=== PATIENT | female | born 1985 | race Caucasian/White ===

== ENCOUNTER → 2020-12-20 09:12 | Outpatient (BNVA) | payer OTHER, SELFPAY | PROVIDERS: PCP Nurse Practitioner Family; Visit Provider Internal Medicine Gastroenterology ==

== ENCOUNTER 2021-02-08 11:24 | Outpatient (REF) | payer OTHER, SELFPAY ==
[2021-02-08 12:02] LABS: MANUAL DIFF FLAG NO
[2021-02-08 12:09] LABS: Basophils Absolute Auto 0.1 X10*3/uL (0.0-0.2); Basophils Percent Auto 1.3 % (0-2); Eosinophils Absolute Auto 0.1 X10*3/uL (0.0-0.4); Eosinophils Percent Auto 2.4 % (0-4); Hematocrit 40.8 % (37-47); Hemoglobin 13.3 g/dl (12.0-16.0); Imm Gran Abs Auto 0.01 X10*3/uL (0.00-0.03); Imm Gran Pct Auto 0.2 % (0.0-0.4); Lymphocytes Absolute Auto 1.5 X10*3/uL (1.2-4.9); Lymphocytes Percent Auto 32.6 % (20-40); Mean Corpuscular HGB Conc 32.6 g/dl (31.0-35.0); Mean Corpuscular Hemoglobin 30.2 pg (27.0-33.0); Mean Corpuscular Volume 92.5 fL (80-98); Mean Platelet Volume 10.6 fL (9.4-12.3); Monocytes Absolute Auto 0.4 X10*3/uL (0.1-1.2); Monocytes Percent Auto 8.1 % (2-11); Neutrophils Absolute Auto 2.5 X10*3/uL (2.0-8.3); Neutrophils Percent Auto 55.4 % (45-73); Platelet Count 280 X10*3/uL (160-400); Red Blood Count 4.41 X10*6/uL (4.20-5.50); Red Cell Distribution Width 12.9 % (11.0-16.0); White Blood Count 4.5 X10*3/uL (4.8-10.8)
[2021-02-08 12:36] LABS: Alanine Aminotransferase 47 U/L (0-31); Albumin Level 4.6 g/dL (3.5-5.0); Alkaline Phosphatase 72 U/L (39-117); Anion Gap 12 (12-20); Aspartate Amino Transferase 40 U/L (5-31); Bilirubin Total 0.8 mg/dL (0.0-1.0); Blood Urea Nitrogen 9 mg/dL (9-16); Calcium 9.8 mg/dL (8.4-10.2); Carbon Dioxide 27 mmol/L (22-29); Chloride 105 mmol/L (96-108); Estimated Glomerular Filt Rate > 60; Glucose Random 87 mg/dL (60-115); Potassium 4.5 mmol/L (3.3-5.1); Sodium 139 mmol/L (135-145); Total Protein 7.4 g/dL (6.5-8.0)
[2021-02-08 12:52] LABS: Erythrocyte Sedimentation Rate 2 MM/HR (0-20)
[2021-02-08 12:56] LABS: Vitamin D 25-OH Total 31.3 ng/mL (>30)
[2021-02-10 17:05] LABS: Folate 12.1 ng/mL (> or = 4.0); Vitamin B12 438 pg/mL (200-900)
[2021-02-11 01:07] LABS: Vitamin C 1.1 mg/dL (0.3-2.7)
[2021-02-12 10:58] LABS: Zinc 64 mcg/dL (60-130)
[2021-02-13 18:53] LABS: Vitamin A 33 mcg/dL (38-98)
[2021-02-14 16:16] LABS: Nicotinamide <20 ng/mL; Vit B3 - Nicotinic Acid <20 ng/mL
[2021-02-16 10:52] LABS: Vitamin B5 (Pantothenic Acid) <40 ng/mL (<275)
== END 2021-02-08 11:25 | disposition home or self-care (01) ==
LOC: HO.LAB 11:24
PROVIDERS: PCP Nurse Practitioner Family; Visit Provider Internal Medicine Gastroenterology
DX: E46 Unspecified protein-calorie malnutrition (principal)
CPT/HCPCS: 36415; 80053; 82180; 82306; 82607; 82746; 84207; 84590; 84591; 84630; 85025; 85652

== ENCOUNTER 2021-03-02 10:43 | Outpatient (REF) | payer OTHER, SELFPAY ==
[2021-03-02 11:52] LABS: Alanine Aminotransferase 50 U/L (0-31); Albumin Level 4.5 g/dL (3.5-5.0); Alkaline Phosphatase 68 U/L (39-117); Anion Gap 11 (12-20); Aspartate Amino Transferase 40 U/L (5-31); Bilirubin Total 0.7 mg/dL (0.0-1.0); Blood Urea Nitrogen 16 mg/dL (9-16); C Reactive Protein 0.06 mg/dL (< or = 0.50); Calcium 9.3 mg/dL (8.4-10.2); Carbon Dioxide 30 mmol/L (22-29); Chloride 104 mmol/L (96-108); Estimated Glomerular Filt Rate > 60; Glucose Random 104 mg/dL (60-115); Potassium 4.1 mmol/L (3.3-5.1); Rheumatoid Factor < 15.0 IU/mL (<15.0); Sodium 141 mmol/L (135-145); Total Protein 7.2 g/dL (6.5-8.0)
[2021-03-02 13:52] LABS: Erythrocyte Sedimentation Rate 3 MM/HR (0-20)
[2021-03-03 11:52] LABS: Immunoglobulin G 973 mg/dL (600-1640)
[2021-03-03 13:51] LABS: Anti Nuclear Antibody Screen NEGATIVE (NEGATIVE)
[2021-03-04 03:56] LABS: Cyclic Citrullinated Peptide <16 UNITS
[2021-03-08 05:22] LABS: Aldolase 5.3 U/L (<=8.1)
== END 2021-03-02 10:44 | disposition home or self-care (01) ==
LOC: HO.LAB 10:43
PROVIDERS: PCP Nurse Practitioner Family; Visit Provider Internal Medicine Gastroenterology
DX: K31.84 Gastroparesis (principal); E46 Unspecified protein-calorie malnutrition; K52.839 Microscopic colitis, unspecified; K63.89 Other specified diseases of intestine
CPT/HCPCS: 36415; 80053; 82085; 82550; 82784; 85652; 86038; 86039; 86140; 86200; 86431

== ENCOUNTER 2021-03-28 09:15 | Outpatient (REF) | payer OTHER, SELFPAY ==
--- NOTE | ~2021-03-28 | US_ITS ---
EXAMINATION: US ABDOMEN COMPLETE CLINICAL INFORMATION: Abnormal LFTs. COMPARISON: None TECHNIQUE: Real-time imaging of the abdominal viscera. FINDINGS: PANCREAS: Normal. ABDOMINAL AORTA: The proximal, mid, and distal segments are normal in caliber. INFERIOR VENA CAVA: Visualized portions are normal. LIVER: The liver is normal in size. The liver contour is normal. The liver echotexture is normal. No focal hepatic lesion. There is no intrahepatic biliary duct dilatation seen. There is echogenic material and linear septations seen in the extrahepatic main portal vein. This could be better evaluated with a dedicated abdominal Doppler exam if clinically indicated. GALLBLADDER: Normal. The gallbladder is physiologically distended without evidence of stones, sludge, polyps, wall thickening or pericholecystic fluid. COMMON BILE DUCT: Normal in caliber measuring 0.40 cm in diameter. RIGHT KIDNEY: Normal. No hydronephrosis. No renal calculi or focal parenchymal lesions. The kidney measures 10.3 cm in maximum dimension. LEFT KIDNEY: Normal. No hydronephrosis. No renal calculi or focal parenchymal lesions. The kidney measures 9.3 cm in maximum dimension. SPLEEN: Normal. The spleen measures 8.9 cm in maximum dimension. FREE FLUID: None. US/US abdomen complete IMPRESSION: Echogenic material questionable for nonocclusive thrombus and septation in the extrahepatic main portal vein. This could be better evaluated with a dedicated abdominal Doppler exam if clinically indicated.
== END 2021-03-28 09:16 | disposition home or self-care (01) ==
LOC: HO.US 09:15
PROVIDERS: Visit Provider Internal Medicine Gastroenterology
DX: R94.5 Abnormal results of liver function studies (principal)
CPT/HCPCS: 76700

== ENCOUNTER 2021-03-31 16:17 | Outpatient (REF) | payer OTHER, SELFPAY ==
--- NOTE | ~2021-03-31 | MR_ITS ---
EXAMINATION: MR ABDOMEN WITHOUT AND WITH CONTRAST CLINICAL INFORMATION: Question of portal vein thrombosis. COMPARISON: Abdominal ultrasound performed earlier today. TECHNIQUE: MR abdomen was performed without and with use of 6.5 mL intravenous Gadavist gadolinium contrast. Postcontrast images are performed in multiphase dynamic sequences. Imaging was performed in 3 planes. FINDINGS: LUNG BASES: The visualized lung bases are unremarkable. LIVER, GALLBLADDER, AND BILIARY TREE: Unremarkable. PANCREAS: Unremarkable. SPLEEN: Normal. ADRENAL GLANDS: Normal. KIDNEYS AND URETERS: The kidneys are normal in size, shape, and enhance symmetrically. No hydronephrosis. No perinephric stranding. GASTROINTESTINAL TRACT: No bowel obstruction. No ascites or fluid collection. ABDOMINAL WALL: No significant hernia is appreciated. LYMPH NODES: No lymphadenopathy. VASCULAR: The portal veins appear patent without definitive thrombus. Areas of low signal on postcontrast images likely represent flow artifact. Normal opacification of the intrahepatic portal veins is seen. OSSEOUS STRUCTURES: Marrow signal normal. MR/MR abdomen wo/w con IMPRESSION: No definitive evidence for portal vein thrombosis. The portal veins appear patent. As previously suggested, a dedicated abdominal Doppler ultrasound would be of value to confirm patency as well as assess flow dynamics.
== END 2021-03-31 16:18 | disposition home or self-care (01) ==
LOC: HO.MRI 16:17
PROVIDERS: Visit Provider Internal Medicine Gastroenterology
DX: I81 Portal vein thrombosis (principal)
CPT/HCPCS: 74183; A9585

== ENCOUNTER 2023-02-15 10:26 | Outpatient (REF) | payer OTHER, SELFPAY ==
[2023-02-15 11:47] LABS: MANUAL DIFF FLAG NO
[2023-02-15 11:56] LABS: Basophils Absolute Auto 0.1 X10*3/uL (0.0-0.2); Basophils Percent Auto 0.8 % (0-2); Eosinophils Absolute Auto 0.1 X10*3/uL (0.0-0.4); Eosinophils Percent Auto 1.8 % (0-4); Hematocrit 43.8 % (37.0-47.0); Hemoglobin 14.2 g/dl (12.0-16.0); Imm Gran Abs Auto 0.02 X10*3/uL (0.00-0.03); Imm Gran Pct Auto 0.3 % (0.0-0.4); Lymphocytes Absolute Auto 1.7 X10*3/uL (1.2-4.9); Lymphocytes Percent Auto 28.2 % (20-40); Mean Corpuscular HGB Conc 32.4 g/dl (31.0-35.0); Mean Corpuscular Hemoglobin 28.9 pg (27.0-33.0); Mean Platelet Volume 10.3 fL (9.4-12.3); Monocytes Absolute Auto 0.5 X10*3/uL (0.1-1.2); Monocytes Percent Auto 8.2 % (2-11); Neutrophils Absolute Auto 3.7 x10*3/uL (2.0-8.3); Neutrophils Percent Auto 60.7 % (45-73); Platelet Count 327 X10*3/uL (160-400); Red Blood Count 4.92 X10*6/uL (4.20-5.50); Red Cell Distribution Width 13.3 % (11.0-16.0); White Blood Count 6.1 X10*3/uL (4.8-10.8)
[2023-02-15 13:13] LABS: Alanine Aminotransferase 23 U/L (0-31); Albumin Level 4.6 g/dL (3.5-5.0); Alkaline Phosphatase 80 U/L (39-117); Anion Gap 13 (12-20); Aspartate Amino Transferase 21 U/L (5-31); Bilirubin Total 0.6 mg/dL (0.0-1.0); Blood Urea Nitrogen 14 mg/dL (9-16); C Reactive Protein < 0.10 mg/dL (< or = 0.50); Calcium 9.6 mg/dL (8.4-10.2); Carbon Dioxide 25 mmol/L (22-29); Chloride 107 mmol/L (96-108); Estimated Glomerular Filt Rate > 60; Glucose Random 91 mg/dL (60-115); Potassium 4.8 mmol/L (3.3-5.1); Sodium 140 mmol/L (135-145); Total Protein 7.5 g/dL (6.5-8.0)
[2023-02-15 13:48] LABS: Ferritin 28 ng/mL (10-122); Folate 12.2 ng/mL (> or = 4.0); Vitamin D 25-OH Total 12.5 ng/mL (>30)
[2023-02-15 13:59] LABS: Vitamin B12 597 pg/mL (200-900)
[2023-02-19 13:39] LABS: Zinc 59 mcg/dL (60-130)
[2023-02-20 14:39] LABS: Vitamin B6 7.9 ng/mL (2.1-21.7)
[2023-02-21 06:04] LABS: Alpha-Tocopherol 11.8 mg/L (5.7-19.9); Beta-Gamma Tocopherol <1.0 mg/L (<=4.3); Vitamin A 46 mcg/dL (38-98)
[2023-02-21 20:59] LABS: Vitamin B5 (Pantothenic Acid) <40 ng/mL (<275)
[2023-02-22 16:59] LABS: Vitamin B1 13 nmol/L (8-30)
[2023-02-22 17:18] LABS: Nicotinamide <20 ng/mL; Vit B3 - Nicotinic Acid <20 ng/mL; Vitamin K1 >2500 pg/mL (130-1500)
== END 2023-02-15 10:27 | disposition home or self-care (01) ==
LOC: HO.LAB 10:26
PROVIDERS: PCP Nurse Practitioner Family; Visit Provider Internal Medicine Gastroenterology
DX: K75.81 Nonalcoholic steatohepatitis (NASH) (principal); K63.89 Other specified diseases of intestine; E46 Unspecified protein-calorie malnutrition; R94.5 Abnormal results of liver function studies
CPT/HCPCS: 36415; 80053; 82180; 82306; 82607; 82728; 82746; 84207; 84425; 84446; 84590; 84591; 84597; 84630; 85025; 86140

== ENCOUNTER 2023-07-12 10:16 | Outpatient (AMB) | payer OTHER, SELFPAY ==
--- NOTE | 2023-07-12 10:29 | MHC.OFFVIS ---
Intake Vital Signs 07/12/23 10:31 Height 5 ft 5 in Weight 143 lb 4.807 oz BMI 23.8 BP 137/90 H Blood Pressure Location Lt brachial Position Sitting Pulse 70 Intake Visit Reasons: pt r/s appointment from 06/10 Intake Note: Teetee presents in the office as a rescheduled follow up. CC: She states that she is not having any more concerns than usual. Abdominal pains, constipation, diarrhea. Not frequently but sometimes will have some blood. 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 She had been gaining weight ? she was not getting refills on meds ? issues with bloating, can't button jeans, has to change jeans ? denies constipation ? mouth is getting swollen ? has been having canker sores ? no blood in stool for 1 month, saw red blood 1 month ago and lasted for 1 week ? appetite is good ? totally vegan diet, had b12 checked and awaiting result ? anxiety higher dose ? gerd is horrible, now on pepcid ? gets rash on face, unsure if only in sunlight, not uncomfortable, ? EGD/colonoscopy--2018-- internal hemorrhoids, otherwise normal ? she was given famotidien and rifaximin trial ?LABS: 04/2020--cbc--nml (mild low wcc), crp--nml, cortisol nml, ferritin-48, ? RAST neg, Zinc, 54, celiac neg, intrinsic/parietal cell ab--neg\ ? stool lactoferrin--neg ? rept Zn: 66, b1- 12, vit c--0.5, GES at [facility] 2018-- 39% at 4 hrs labs with mild def of zinc, vit C and borderline B6, advised to cont to supplement, prob related to diet--other labs reassuring for lack of colitis, or lupus, celiac ? 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 VITAL SIGNS:see workflow HEENT: Nonicteric sclerae, PERRLA, EOMI. Oropharynx clear. Moist mucous membranes. Conjunctivae appear well perfused. No thyroid mass. CHEST: Chest wall is nontender. HEART: Regular rate and rhythm without murmurs. LUNGS: Clear to auscultation bilaterally. ABDOMEN: Soft, positive bowel sounds, nontender, no organomegaly.no flank tenderness SKIN: No rash, no excessive bruising, petechiae, or purpura. NEUROLOGIC: Cranial nerves II-XII intact without motor/sensory deficit, mild tremor MS- hypermobile joints Assessments ? 1. Malnutrition, unspecified type 2. bloating and diarrhea prob related to 3/ 3. Gastroparesis ? PLAN: 1/ Might have ignacio danlos with POTs --might need referral for further assessment as some point, no Hx of aneurysms in family 2/ discussed other options for gastroparesis incl mirtazpine, TCA, pyloroplasty, but not keen on these at this time, insurance denied motegrity 3/ can increase Zn and B vitamin intake as B vits are towards low end of normal 4/ check for celiac axis compression PFSH Surgical History History of esophagogastroduodenoscopy (EGD) Hx of section Hx of colonoscopy Hx of hemorrhoidectomy Hx of hernia repair Hx of tubal ligation Family History Maternal Grandmother History of colon cancer Father No problems noted. 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
[2023-07-12 10:31] VITALS: BP 137/90; PULSE 70; BMI 23.8
== END 2023-07-12 11:13 | disposition home or self-care (01) ==
PROVIDERS: PCP Nurse Practitioner Family; Visit Provider Internal Medicine Gastroenterology
DX: I77.4 Celiac artery compression syndrome (principal); E46 Unspecified protein-calorie malnutrition; K31.84 Gastroparesis
CPT/HCPCS: 99213

== ENCOUNTER → 2023-07-12 10:16 | Outpatient (BNVA) | payer OTHER, SELFPAY | PROVIDERS: PCP Nurse Practitioner Family; Visit Provider Internal Medicine Gastroenterology ==

== ENCOUNTER 2023-08-07 10:24 | Outpatient (REF) | payer OTHER, SELFPAY ==
--- NOTE | ~2023-08-07 | US_ITS ---
EXAMINATION: ULTRASOUND ABDOMINAL ARTERIAL DOPPLER CLINICAL INFORMATION: Epigastric pain. Evaluate for celiac axis compression. COMPARISON: MRI abdomen 03/31/2021. TECHNIQUE: Doppler abdominal ultrasound was done to evaluate the visceral arteries for celiac artery compression. Grayscale, color Doppler, and spectral Doppler evaluation was performed with provocative maneuvers. FINDINGS: ABDOMINAL AORTA: Proximal to SMA: PSV 142 cm/s. Normal waveform. Distal to SMA: PSV 118 cm/s. Normal waveform. CELIAC ARTERY: Supine inspiration: PSV 104 cm/s. Normal waveform. Supine expiration: PSV 157 cm/s. Normal waveform. Erect inspiration: PSV 150 cm/s. Normal waveform. Erect expiration: PSV 119 cm/s. Normal waveform. SUPERIOR MESENTERIC ARTERY: Proximal: PSV 173 cm/s. Normal waveform. Mid: PSV 143 cm/s. Normal waveform. Distal: PSV 97 cm/s. Normal waveform. PETER: PSV 155 cm/s. Normal waveform. SPLENIC ARTERY: PSV 167 cm/s. Normal waveform. HEPATIC ARTERY: PSV 99 cm/s. Normal waveform. US/US duplex arterial venous comp IMPRESSION: No Doppler evidence of hemodynamically significant celiac artery compression. The celiac artery appears normal on the prior MRI of the abdomen.
== END 2023-08-07 10:25 | disposition home or self-care (01) ==
LOC: HO.US 10:24
PROVIDERS: PCP Nurse Practitioner Family; Visit Provider Internal Medicine Gastroenterology
DX: I77.4 Celiac artery compression syndrome (principal); E46 Unspecified protein-calorie malnutrition; K31.84 Gastroparesis
CPT/HCPCS: 93975

== ENCOUNTER 2024-01-10 10:01 | Outpatient (REF) | payer OTHER, SELFPAY ==
[2024-01-10 11:22] LABS: MANUAL DIFF FLAG NO
[2024-01-10 12:20] LABS: Basophils Absolute Auto 0.1 X10*3/uL (0.0-0.2); Eosinophils Absolute Auto 0.1 X10*3/uL (0.0-0.4); Eosinophils Percent Auto 1.4 % (0-4); Hemoglobin 13.8 g/dl (12.0-16.0); Imm Gran Abs Auto 0.01 X10*3/uL (0.00-0.03); Imm Gran Pct Auto 0.2 % (0.0-0.4); Lymphocytes Absolute Auto 1.4 X10*3/uL (1.2-4.9); Lymphocytes Percent Auto 28.4 % (20-40); Mean Corpuscular HGB Conc 32.1 g/dl (31.0-35.0); Mean Corpuscular Hemoglobin 28.8 pg (27.0-33.0); Mean Corpuscular Volume 89.6 fL (80.0-98.0); Mean Platelet Volume 10.9 fL (9.4-12.3); Monocytes Absolute Auto 0.4 X10*3/uL (0.1-1.2); Monocytes Percent Auto 7.4 % (2-11); Neutrophils Absolute Auto 3.1 x10*3/uL (2.0-8.3); Neutrophils Percent Auto 61.6 % (45-73); Platelet Count 352 X10*3/uL (160-400); Red Cell Distribution Width 12.7 % (11.0-16.0)
[2024-01-10 12:56] LABS: Alanine Aminotransferase 17 U/L (0-31); Albumin Level 4.8 g/dL (3.5-5.0); Alkaline Phosphatase 83 U/L (39-117); Anion Gap 14 (12-20); Aspartate Amino Transferase 17 U/L (5-31); Bilirubin Total 0.7 mg/dL (0.0-1.0); Blood Urea Nitrogen 14 mg/dL (9-16); Calcium 9.8 mg/dL (8.4-10.2); Carbon Dioxide 26 mmol/L (22-29); Chloride 105 mmol/L (96-108); Cholesterol 180 mg/dL (<200); Estimated Glomerular Filt Rate > 60; Glucose Random 90 mg/dL (60-115); HDL Cholesterol 52 mg/dL (>40); LDL Cholesterol Calculated 112 mg/dL (<100); Sodium 141 mmol/L (135-145); Total Protein 8.1 g/dL (6.5-8.0); Triglycerides 81 mg/dL (<150)
[2024-01-10 13:14] LABS: TSH reflex Free T4 1.58 uIU/mL (0.32-4.0)
[2024-01-10 13:16] LABS: Folate 8.9 ng/mL (> or = 4.0); Vitamin B12 1105 pg/mL (200-900)
[2024-01-10 14:09] LABS: Reflex LDLD? No
[2024-01-11 10:54] LABS: LDL Cholesterol Direct 114 mg/dL (<100)
[2024-01-14 02:04] LABS: Zinc 72 mcg/dL (60-130)
[2024-01-16 08:04] LABS: Lipoprotein Asso Phospholip A2 110 (<124)
[2024-01-17 15:49] LABS: Vitamin C 0.3 mg/dL (0.3-2.7)
[2024-01-20 12:38] LABS: Apolipoprotein A1 145 mg/dL (>=125); Apolipoprotein B 85 mg/dL (<90)
== END 2024-01-10 10:02 | disposition home or self-care (01) ==
LOC: HO.LAB 10:01
PROVIDERS: PCP Nurse Practitioner Family; Visit Provider Internal Medicine Gastroenterology
DX: R94.5 Abnormal results of liver function studies (principal); K31.84 Gastroparesis; E46 Unspecified protein-calorie malnutrition; K75.81 Nonalcoholic steatohepatitis (NASH)
CPT/HCPCS: 36415; 80053; 80061; 82172; 82180; 82607; 82746; 83698; 83721; 84443; 84630; 85025

== ENCOUNTER 2024-01-10 10:01 | Outpatient (AMB) | payer OTHER, SELFPAY ==
--- NOTE | 2024-01-10 10:17 | MHC.OFFVIS ---
Intake Vital Signs 01/10/24 10:19 Height 5 ft 5 in Weight 140 lb BMI 23.3 BP 108/76 Blood Pressure Location Lt brachial Position Sitting Pulse 84 Intake Visit Reasons: 6 month follow up Intake Note: Patient 6 month follow up Celiac axis Patient cc: Nauseas, some abdominal discomfort with bloating, acid reflex with occasional burning sensation, between diarrhea and constipation. 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 Accompanied by: Self / Same As Patient Allergies amoxicillin Allergy (Unknown, Verified 01/10/24 10:16) Anaphylaxis Penicillins Allergy (Verified 01/10/24 10:16) Anaphylaxis HPI 6 month follow up HPI Details 38 yr old f here for f/u RECAP: Had been being seen for gastroparesis and POT syndrome She had been gaining weight she was not getting refills on meds issues with bloating, can't button jeans, has to change jeans denies constipation mouth is getting swollen has been having canker sores no blood in stool for 1 month, saw red blood 1 month ago and lasted for 1 week appetite is good totally vegan diet, had b12 checked and awaiting result anxiety higher dose gerd is horrible, now on pepcid gets rash on face, unsure if only in sunlight, not uncomfortable, EGD/colonoscopy--2018-- internal hemorrhoids, otherwise normal she was given famotidien and rifaximin trial LABS: 04/2020--cbc--nml (mild low wcc), crp--nml, cortisol nml, ferritin-48, RAST neg, Zinc, 54, celiac neg, intrinsic/parietal cell ab--neg\ stool lactoferrin--neg rept Zn: 66, b1- 12, vit c--0.5, GES at [facility] 2018-- 39% at 4 hrs labs with mild def of zinc, vit C and borderline B6, advised to cont to supplement, prob related to diet--other labs reassuring for lack of colitis, or lupus, celiac US dulpex, mesenteric--normal INTERIM: 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 VITAL SIGNS:see workflow HEENT: Nonicteric sclerae, PERRLA, EOMI. Oropharynx clear. Moist mucous membranes. Conjunctivae appear well perfused. No thyroid mass. CHEST: Chest wall is nontender. HEART: Regular rate and rhythm without murmurs. LUNGS: Clear to auscultation bilaterally. ABDOMEN: Soft, positive bowel sounds, nontender, no organomegaly.no flank tenderness SKIN: No rash, no excessive bruising, petechiae, or purpura. NEUROLOGIC: Cranial nerves II-XII intact without motor/sensory deficit, mild tremor MS- hypermobile joints Assessments 1. Malnutrition, unspecified type 2. bloating and diarrhea prob related to 3/ 3. Gastroparesis 4. pos FH of colon polyps 5/ may also have TAMMI which is contributing to her sx PLAN: 1/ colonoscopy due to FH of colorectal polyps 2/ reviewed options for gastroparesis incl mirtazpine, TCA, pyloroplasty, not keen, discussed tumeric and quercetin use 3/ recheck labs 4/ re refer sleep for TAMMI assessment [facility] Surgical History Hx of hernia repair Hx of section Hx of tubal ligation Hx of hemorrhoidectomy History of esophagogastroduodenoscopy (EGD) Hx of colonoscopy Family History Maternal Grandmother History of colon cancer Father No problems noted. 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 Malnutrition, unspecified type 2. bloating and diarrhea prob related to 3/ 3. Gastroparesis 4. pos FH of colon polyps PLAN: 1/ colonoscopy due to FH of colorectal polyps 2/ reviewed options for gastroparesis incl mirtazpine, TCA, pyloroplasty, not keen, discussed tumeric and quercetin use 3/ recheck labs (2) Gastroparesis: Code(s): K31.84 - Gastroparesis Plan: 1. Malnutrition, unspecified type 2. bloating and diarrhea prob related to 3/ 3. Gastroparesis 4. pos FH of colon polyps PLAN: 1/ colonoscopy due to FH of colorectal polyps 2/ reviewed options for gastroparesis incl mirtazpine, TCA, pyloroplasty, not keen, discussed tumeric and quercetin use 3/ recheck labs (3) Malnutrition: Code(s): E46 - Unspecified protein-calorie malnutrition Plan: 1. Malnutrition, unspecified type 2. bloating and diarrhea prob related to 3/ 3. Gastroparesis 4. pos FH of colon polyps PLAN: 1/ colonoscopy due to FH of colorectal polyps 2/ reviewed options for gastroparesis incl mirtazpine, TCA, pyloroplasty, not keen, discussed tumeric and quercetin use 3/ recheck labs Orders: Orders Vitamin C Today E46 - Unspecified protein-calorie malnutrition, K31.84 - Gastroparesis, R94.5 - Abnormal results of liver function studies Zinc Today E46 - Unspecified protein-calorie malnutrition, K31.84 - Gastroparesis, R94.5 - Abnormal results of liver function studies Comprehensive Met. Panel Today E46 - Unspecified protein-calorie malnutrition, K31.84 - Gastroparesis, K75.81 - Nonalcoholic steatohepatitis (PLASCENCIA), R94.5 - Abnormal results of liver function studies Vitamin B12 and Folate Today E46 - Unspecified protein-calorie malnutrition, K31.84 - Gastroparesis, R94.5 - Abnormal results of liver function studies Complete Blood Count Auto Diff Today E46 - Unspecified protein-calorie malnutrition, K31.84 - Gastroparesis, R94.5 - Abnormal results of liver function studies TSH reflex Free T4 Today E46 - Unspecified protein-calorie malnutrition, K31.84 - Gastroparesis, R94.5 - Abnormal results of liver function studies LDL Cholesterol Direct Today E46 - Unspecified protein-calorie malnutrition, K31.84 - Gastroparesis, R94.5 - Abnormal results of liver function studies Lipid Panel with Reflex Today E46 - Unspecified protein-calorie malnutrition, K31.84 - Gastroparesis, R94.5 - Abnormal results of liver function studies Lipoprotein Asso Phospholip A2 Today E46 - Unspecified protein-calorie malnutrition, K31.84 - Gastroparesis, R94.5 - Abnormal results of liver function studies Apolipoprotein B Today E46 - Unspecified protein-calorie malnutrition, K31.84 - Gastroparesis, R94.5 - Abnormal results of liver function studies Apolipoprotein A1 Today E46 - Unspecified protein-calorie malnutrition, K31.84 - Gastroparesis, R94.5 - Abnormal results of liver function studies Medications: New sodium,potassium,mag sulfates 17.5-3.13-1.6 gram (Suprep Bowel Prep Kit) DILUTE; drink 1/2 at 6-8 pm and half at 11 PM- 1AM 354 mL 0RF Discontinued plecanatide (Trulance) Discontinued Reason: Patient Completed Course 3 mg PO DAILY 30 tabs 2RF Coding Level of Care Code Est Pt Level 4 (37526) Diagnoses Abnormal LFTs R94.5 Gastroparesis K31.84 Malnutrition E46
[2024-01-10 10:19] VITALS: BP 108/76; PULSE 84; BMI 23.3
== END 2024-01-10 11:07 | disposition home or self-care (01) ==
PROVIDERS: PCP Nurse Practitioner Family; Visit Provider Internal Medicine Gastroenterology
DX: R94.5 Abnormal results of liver function studies (principal); K31.84 Gastroparesis; E46 Unspecified protein-calorie malnutrition
CPT/HCPCS: 99214

== ENCOUNTER 2024-04-07 09:27 | Day surgery (SDC) | payer OTHER, SELFPAY ==
--- NOTE | 2024-04-06 12:24 | HO.ANESPROP2 ---
Documented by User: Cecily Castelan NP 04/06/24 12:25 HPI - Anesthesia Eval Consult details Narrative: 38yo F for Colonoscopy [facility] Active Problems Active Problems: All Active Problems Needs sleep apnea assessment (Acute) Snoring (Acute) Celiac axis compression syndrome (Acute) Portal vein thrombosis (Acute) Abnormal LFTs (Acute) Small intestinal bacterial overgrowth (SIBO) (Acute) Gastroparesis (Acute) Malnutrition (Acute) Past Medical History Medical History Rh sensitized Mast cell disease Gastroparesis Graves disease Family History Family History Maternal Grandmother History of colon cancer Father No problems noted. 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 [employer] Meds Allergies Allergy/AdvReac Type Severity Reaction Status Date / Time amoxicillin Allergy Unknown Anaphylaxis Verified 04/07/24 10:40 Penicillins Allergy Anaphylaxis Verified 04/07/24 10:40 Home Medications ?Medication ?Instructions ?Recorded ?Confirmed ?Last Taken ?Type lisdexamfetamine 20 mg capsule 20 mg PO DAILY 07/12/23 04/07/24 Unknown History (Vyvsuee) Assessment and Plan Assessment Anesthesia Assessment: Chart Reviewed Documented by User: Dariela Webb MD 04/07/24 12:10 PMFSH Past Medical History Medical History Rh sensitized Mast cell disease Gastroparesis Graves disease Family History Family History Maternal Grandmother History of colon cancer Father No problems noted. Maternal Uncle History of colon cancer Mother History of colonic polyps Maternal Aunt History of colonic polyps Family history of problems with anesthesia: No Surgical History Surgical History Hx of hernia repair Hx of section Hx of tubal ligation Hx of hemorrhoidectomy History of esophagogastroduodenoscopy (EGD) Hx of colonoscopy History of Problems with Anesthesia: No Social History Social History Household Members: Spouse and Children Alcohol intake: current Alcohol intake frequency: does not drink Patient Tobacco Use Status: Former Tobacco user Quit Date: 11 yrs ago Substance Use Type: Marijuana service: No Current occupational status: employed 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 [employer] Meds Allergies Allergy/AdvReac Type Severity Reaction Status Date / Time amoxicillin Allergy Unknown Anaphylaxis Verified 04/07/24 10:40 Penicillins Allergy Anaphylaxis Verified 04/07/24 10:40 Home Medications ?Medication ?Instructions ?Recorded ?Confirmed ?Last Taken ?Type lisdexamfetamine 20 mg capsule 20 mg PO DAILY 07/12/23 04/07/24 Unknown History (Zaira) Exam Height,Weight and Vital Signs: Height 5 ft 5 in Weight 62.596 kg Vital Signs Temp Pulse Resp BP Pulse Ox O2 Del Method 04/07/24 10:50 97.8 F 70 15 114/83 100 Room Air Airway Mallampati Class: II TM Dist: >3cm Neck ROM: Full Loose/Missing/Broken Teeth: No (Denies broken, loose, missing teeth) Heart: RRR Lungs: CTAB Assessment and Plan Assessment Anesthesia Assessment: Anesthesia Plan Discussed and Chart Reviewed Final Anesthetic Review Family History of Problems with Anesthesia: No History of Problems with Anesthesia: No NPO: Yes ASA Class: II Final Preanesthetic Review: No Changes in Pt Med Stat, Meds/Allgs Chart Reviewed, Consent Obtained/Reviewed and Anes Risks/Benef Reviewed Patient Risk: Intermediate Procedure Risk: Low Assessment/Block/Sedation in SS: Assess/Block/Sedation-SS Anesthetic Plan Anesthetic Plan: MAC:, TIVA and Other (Jewelry on. Cannot be removed. Aware of possibility of injury, loss, madsen and wishes to continue. Waiver signed) Disposition: Standard PACU
[2024-04-07 10:45] VITALS: BMI 23.0
[2024-04-07 10:50] VITALS: BP 114/83; PULSE 70; RESP 15; TEMP 36.6; O2SAT 100
[2024-04-07] MEDS: Lactated Ringers 1,000 ML 100 ML IVCONT (11:04)
--- NOTE | 2024-04-07 11:51 | MHC.SHP ---
Pre-Procedural Eval Section A - 24 Hr Update-Section A only Date of Service: 04/07/24 Section B - Complete if H&P > 30 days Chief Complaint: Fh of colon polyps Relevant Family History (Specify if Yes): No Relevant Social History: None Present Medications: see Short Stay Collaborative assessment Medical History: Significant History (gastroparesis, POTS) History of Previous Operations: Relevant previous surgery/procedure and date(s) (Hx of hernia repair Hx of section Hx of tubal ligation Hx of hemorrhoidectomy History of esophagogastroduodenoscopy (EGD) Hx of colonoscopy) Allergies: Allergies Allergy/AdvReac Type Severity Reaction Status Date / Time amoxicillin Allergy Unknown Anaphylaxis Verified 04/07/24 10:40 Penicillins Allergy Anaphylaxis Verified 04/07/24 10:40 Review of Systems Sugical H&P ROS: Negative: Constitution, Cardiovascular, Respiratory, Neurological, Psychiatric, Hem-Onc, Allergic/Immunologic, Gastrointestinal, Genitourinary, Musculoskeletal, Integumentary, Endocrine and Eyes/Ears/Nose/Throat Exam Surgical H&P Exam: Normal: HEENT, Normal: Heart, Normal: Lungs, Normal: Extremities, Normal: Abdomen, Normal: Skin and Normal: Neurological Plan Diagnosis/Plan: Unchanged I have reviewed the history and physical and performed a pertinent physical examination on my patient. No changes have occurred unless specified. Time Spent With Patient Time: Total time managing care of this patient today ____ minutes.
--- NOTE | 2024-04-07 11:52 | W.PM.OPN ---
Operative Note Operative Note Date of Service: 04/07/24 Narrative: Operative Information Procedure Description: Colonoscopy Indication: Fh of colon polyps Anesthesia: MAC COLONOSCOPY Instrument: Olympus variable stiffness pediatric scope 190L Colonoscopy Monitoring: Vital signs and clinical assessment, continuous EKG monitoring, Pulse oximetry, Carbon Dioxide monitoring and blood pressure monitoring were done throughout the procedure. Colon withdrawal time was 10 minutes. Procedure: The patient was placed in the left lateral decubitis position and pre-procedure medications were administered. After a digital rectal examination of the ano-rectum, the video colonoscope was inserted into the rectum and advanced through the colon to the cecum/TI. The colonoscope was slowly withdrawn in a retrograde panoramic fashion and the colon mucosa was carefully examined including a retroflexed view of the rectum. Findings and interventions are described below. Procedure Difficulty: easy Findings: Terminal Ileum-normal, random bx taken Cecum:normal, slightly granular mucosa, random colon bx taken Ascending Colon: normal Transverse Colon -normal Descending Colon:normal Sigmoid Colon: normal Rectum: Retroflexion with small internal hemorrhoids seen, grade I Anorectum - normal Intervention: cold biopsy forceps Colon preparation: [place] Bowel Preparation Scale Right colon; 2 Transverse colon: 2 Left colon; 2 (0 = Unprepared colon segment with mucosa not seen due to solid stool that cannot be cleared. 1 = Portion of mucosa of the colon segment seen, but other areas of the colon segment not well seen due to staining, residual stool and/or opaque liquid. 2 = Minor amount of residual staining, small fragments of stool and/or opaque liquid, but mucosa of colon segment seen well. 3 = Entire mucosa of colon segment seen well with no residual staining, small fragments of stool or opaque liquid) Impression and Post Procedure Diagnosis: internal hemorrhoids Plan: High fiber diet leaflet Avoid straining at stool, epsom salts and sitz bath, anusol supps or cream Repeat Colonoscopy in 5 years due to FH of colon polyps or earlier if clinically indicated Above findings were reviewed with the patient and relevant handouts were provided if indicated.
[2024-04-07 12:47] VITALS: BP 97/63; PULSE 74; RESP 16; TEMP 36.8; O2SAT 99
[2024-04-07 13:02] VITALS: BP 103/67; PULSE 70; RESP 16; O2SAT 99
[2024-04-07 13:17] VITALS: BP 108/64; PULSE 67; RESP 16; TEMP 36.7; O2SAT 99
== END 2024-04-07 13:56 | disposition home or self-care (01) ==
PROVIDERS: PCP Nurse Practitioner Family; Visit Provider Internal Medicine Gastroenterology
PROC: 0DJD8ZZ Inspection of Lower Intestinal Tract, Via Natural or Artificial Opening Endoscopic (ICD-10-PCS; CPT 45378; principal; 2024-04-07 12:20)
DX: Z12.11 Encounter for screening for malignant neoplasm of colon (principal); K64.0 First degree hemorrhoids; Z83.719 Family history of colon polyps, unspecified; K31.84 Gastroparesis; Z88.0 Allergy status to penicillin
CPT/HCPCS: 45380; 88305; 88342

== ENCOUNTER → 2024-04-07 09:27 | Outpatient (BNV) | payer OTHER, SELFPAY | PROVIDERS: PCP Nurse Practitioner Family; Visit Provider Internal Medicine Gastroenterology | DX: Z12.11 Encounter for screening for malignant neoplasm of colon (principal); Z83.719 Family history of colon polyps, unspecified; K64.0 First degree hemorrhoids | CPT/HCPCS: 45380 ==

== ENCOUNTER 2024-06-22 08:50 | Outpatient (AMB) | payer OTHER, SELFPAY ==
--- NOTE | 2024-06-22 08:50 | MHC.OFFVIS ---
Intake Visit Reasons: s/p colon Intake Note: Teetee presents as a telehealth follow up for colonoscopy results. CC: She states she emailed you the concerns she was having and has MRI tomorrow. 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 Allergies amoxicillin Allergy (Unknown, Verified 06/22/24 08:50) Anaphylaxis Penicillins Allergy (Verified 06/22/24 08:50) Anaphylaxis HPI HPI s/p colon: Details: 39 yr old f called for f/u RECAP: Had been being seen for gastroparesis and POT syndrome She had been gaining weight she was not getting refills on meds issues with bloating, can't button jeans, has to change jeans denies constipation mouth is getting swollen has been having canker sores no blood in stool for 1 month, saw red blood 1 month ago and lasted for 1 week appetite is good totally vegan diet, had b12 checked and awaiting result anxiety higher dose gerd is horrible, now on pepcid gets rash on face, unsure if only in sunlight, not uncomfortable, EGD/colonoscopy--2018-- internal hemorrhoids, otherwise normal she was given famotidien and rifaximin trial LABS: 04/2020--cbc--nml (mild low wcc), crp--nml, cortisol nml, ferritin-48, RAST neg, Zinc, 54, celiac neg, intrinsic/parietal cell ab--neg\ stool lactoferrin--neg rept Zn: 66, b1- 12, vit c--0.5, GES at [facility] 2018-- 39% at 4 hrs labs with mild def of zinc, vit C and borderline B6, advised to cont to supplement, prob related to diet--other labs reassuring for lack of colitis, or lupus, celiac US dulpex, mesenteric--normal she has strong FH of CRC and polyps--last colo 2018 Colonoscopy: 2023: normal bx INTERIM: she has been having rectal pain it was painful when sitting but not any more stiz bath helped can be worse with constipation standing for long periods can hurt more stools are on and off in terms of consistency fiber intake is good she has had nausea, no abdominal pain MRI pelvis coming up tomorrow EXAM: GENERAL: The patient is well developed and nontoxic. Assessments 1. Rectla pain, possible anal fissure, few atypical features so MRI pelvis orderd PLAN: 1/ rectiv for 4 weeks 2/ colace and high fiber diet with metamucil 3/await /mri pelvis 4/ offered linaclotide but she wants to hold PFSH Medical History Rh sensitized Mast cell disease Gastroparesis Graves disease Surgical History Hx of hernia repair Hx of section Hx of tubal ligation Hx of hemorrhoidectomy History of esophagogastroduodenoscopy (EGD) Hx of colonoscopy Family History Maternal Grandmother History of colon cancer Father No problems noted. 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 Telehealth Telehealth Telehealth Platform: [employer] Location of provider rendering services: practice address Location of patient: address on file Patient Identification confirmed using: Name, : Yes Telehealth method: video Patient verbally consented to treatment: Yes Patient verbally consented to billing insurance company: Yes Patient informed of any privacy concerns related to visit: Yes Minutes spent on Phone/Video with Pt.: 9 Assessment & Plan Assessment & Plan (1) Rectal pain: Code(s): K62.89 - Other specified diseases of anus and rectum Category: Medical Plan mri Medications: New nitroglycerin 0.4%(w/w) (Rectiv) 1 inch MD BID 30 grams 1RF Coding Level of Care Code Tele Est Pt Level 3 (59250) Diagnoses Rectal pain K62.89
== END 2024-06-22 09:48 | disposition home or self-care (01) ==
LOC: HO.HGI 08:50
PROVIDERS: PCP Nurse Practitioner Family; Visit Provider Internal Medicine Gastroenterology
DX: K62.89 Other specified diseases of anus and rectum (principal)
CPT/HCPCS: 99213

== ENCOUNTER → 2024-06-22 08:50 | Outpatient (BNVA) | payer OTHER, SELFPAY | PROVIDERS: PCP Nurse Practitioner Family; Visit Provider Internal Medicine Gastroenterology ==

== ENCOUNTER 2024-06-23 13:18 | Outpatient (REF) | payer OTHER, SELFPAY ==
--- NOTE | ~2024-06-23 | MR_ITS ---
EXAMINATION: MRI PELVIS WITH AND WITHOUT CONTRAST CLINICAL INFORMATION: Rectal pain and bleeding. History of hemorrhoids. COMPARISON: No pertinent priors currently available. TECHNIQUE: Multiple routine MRI sequences through the pelvis were obtained on a high-field 1.5 Lexi MRI before and after the uneventful administration of 6 mL Gadavist gadolinium-based IV contrast. FINDINGS: No evidence of anorectal wall thickening, hyperenhancement nor surrounding inflammatory changes. No discrete fistulous tract. No organized fluid collection or abscess. UTERUS: Anteverted uterus has a normal configuration. Normal endometrial thickness, 0.7 cm. Junctional zone is normal in signal and thickness. No focal uterine mass seen. Anteroinferior scarring is suspected, correlate with clinical history. CERVIX: Simple-appearing subcentimeter nabothian cysts. VAGINA: Normal; no mass seen. OVARIES: Normal morphology, symmetric in size. No mass seen. KIDNEYS: Two normally positioned kidneys are seen. No hydronephrosis. BLADDER: Urinary bladder normal. PELVIC FREE FLUID: Small volume of free fluid in the cul-de-sac, most likely physiologic. LYMPH NODES: No pathologically enlarged lymph nodes. OSSEOUS STRUCTURES: No acute or suspicious osseous abnormalities. MR/MR pelvis wo/w con IMPRESSION: No significant abnormality.
[2024-06-23] MEDS: gadobutroL 7.5 ML VIAL IVPUSH (14:23)
== END 2024-06-23 13:19 | disposition home or self-care (01) ==
LOC: HO.MRI 13:18
PROVIDERS: PCP Nurse Practitioner Family; Visit Provider Internal Medicine Gastroenterology
DX: K62.89 Other specified diseases of anus and rectum (principal)
CPT/HCPCS: 72197; A9585